=== PATIENT | female | born 1970 | race Caucasian/White ===

== ENCOUNTER 2016-07-14 19:36 | Emergency (ER) | payer OTHER ==
[2016-07-14 20:31] VITALS: BP 126/82
[2016-07-14] MEDS ORDERED: Cyclobenzaprine TAB* 10 MG PO ONE (21:15)
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
== END 2016-07-14 21:27 | disposition home or self-care (01) ==
LOC: UCCORT 19:36
DX: M62.838 Other muscle spasm (principal); R73.03 Prediabetes; E03.9 Hypothyroidism, unspecified; I10 Essential (primary) hypertension; J45.909 Unspecified asthma, uncomplicated; F41.8 Other specified anxiety disorders; F17.210 Nicotine dependence, cigarettes, uncomplicated
CPT/HCPCS: 99212; A9270-GY; G0463

== ENCOUNTER 2017-02-19 11:17 | Emergency (ER) | payer OTHER ==
[2017-02-19 11:39] VITALS: BP 125/92
--- NOTE | 2017-02-19 13:30 | UC ---
Back Pain HPI - HPI Summary HPI Summary: Acute exacerbation of chronic low back pain - History of Current Complaint Chief Complaint: UCBackPain Stated Complaint: lower back pain Time Seen by Provider: 02/19/17 13:24 Hx Obtained From: Patient Hx Last Menstrual Period: 02/15/17 ?: No Onset/Duration: Sudden Onset, Lasting Days - 1 Timing: Constant Severity Initially: Moderate Severity Currently: Moderate Back Pain: Is Discrete @ - lower back both sides Character: Throbbing, Spasmodic, Stiffness Aggravating Factor(s): Movement Alleviating Factor(s): Nothing Associated Signs And Symptoms: Positive: Negative Related History: Previous Back Injury - Allergies/Home Medications Allergies/Adverse Reactions: Allergies Allergy/AdvReac Type Severity Reaction Status Date / Time Gabapentin Allergy Mild Rash Verified 02/19/17 11:32 Penicillins [PCN] Allergy Mild Hives Verified 02/19/17 11:32 [place] Allergy Hives Verified 02/19/17 11:32 Erythromycin AdvReac Mild GI Upset Verified 02/19/17 11:32 Ibuprofen AdvReac Mild GI Upset Verified 02/19/17 11:32 Propoxyphene AdvReac Mild GI Upset Verified 02/19/17 11:32 [From Darvocet-N] Tramadol AdvReac Nausea And Verified 02/19/17 11:32 Vomiting Home Medications: Home Medications QUEtiapine TAB* [Seroquel TAB*] 25 mg PO BID 02/19/17 [History Confirmed ] QUEtiapine TAB* [Seroquel TAB*] 125 mg PO BEDTIME 02/19/17 [History Confirmed ] PMH/Surg Hx/FS Hx/Imm Hx Previously Healthy: No - Chronic pain Endocrine History: Hypothyroidism GI/ History: Gastroesophageal Reflux Other History Of: Negative For: Anticoagulant Therapy - Surgical History Surgical History: Yes Surgery Procedure, Year, and Place: x1. appendectomy. tonsillectomy , pt had a lump removed from rt wrist and carpal tummel repain july 25 2015. RIGHT OOPHRECTOMY - Family History Known Family History: Positive: None - Social History Occupation: Disabled Lives: With Family Alcohol Use: None Substance Use Type: None Smoking Status (MU): Heavy Every Day Tobacco Smoker Type: Cigarettes Amount Used/How Often: 1 ppd X 20 YEARS Length of Time of Smoking/Using Tobacco: ~ 20 years Have You Smoked in the Last Year: Yes Household Exposure Type: Cigarettes Cessation Counseling: Counseled 3+Min - 10 Min - Immunization History Most Recent Influenza Vaccination: December 2013 Review of Systems Constitutional: Negative Skin: Negative Eyes: Negative ENT: Negative Respiratory: Negative Cardiovascular: Negative Gastrointestinal: Negative Genitourinary: Negative Motor: Negative Neurovascular: Negative Musculoskeletal: Negative, Myalgia - Bilateral low back pain Neurological: Negative Psychological: Negative Is Patient Immunocompromised?: No All Other Systems Reviewed And Are Negative: Yes Physical Exam Triage Information Reviewed: Yes Appearance: Well-Nourished, Ill-Appearing - appears older than stated age, Pain Distress - mild Vital Signs: Initial Vital Signs Temp 97.5 F 02/19/17 11:35 Pulse 81 02/19/17 11:35 Resp 18 02/19/17 11:35 BP 125/92 02/19/17 11:35 Vital Signs Reviewed: Yes Eye Exam: Normal Eyes: Positive: Conjunctiva Clear ENT Exam: Normal ENT: Positive: Normal ENT inspection, Hearing grossly normal, Pharynx normal. Negative: Nasal congestion, Nasal drainage, TM bulging, Tonsillar swelling, Tonsillar exudate, Hoarse voice, Dental tenderness, Sinus tenderness Dental Exam: Normal Neck exam: Normal Neck: Positive: Supple, Nontender Respiratory Exam: Normal Respiratory: Positive: Chest non-tender, No respiratory distress, No accessory muscle use Cardiovascular Exam: Normal Cardiovascular: Positive: RRR, Pulses Normal, Brisk Capillary Refill Musculoskeletal Exam: Normal Musculoskeletal: Positive: Strength Intact, No Edema, ROM Limited @ - limited movement in back Neurological Exam: Normal Neurological: Positive: Alert, Muscle Tone Normal Psychological Exam: Normal Skin Exam: Normal Back Pain Course/Dx - Course Course Of Treatment: pain contraol, muscle relaxer, warm compress, follow with pcp - Differential Dx/Diagnosis Provider Diagnoses: Acute exacerbation of chronic low back pain Discharge - Discharge Plan Condition: Stable Disposition: HOME Prescriptions: Hydrocodone-Acetaminophen [Hydrocodone/Acetaminophen 5-325 mg] 1 tab PO Q6H PRN #12 tab MDD 4 PRN Reason: Pain tiZANidine TAB* [Zanaflex TAB*] 2 mg PO TID PRN #15 tab PRN Reason: muscle spasm Patient Education Materials: Chronic Back Pain (ED), Lower Back Exercises (ED) , Core Strengthening Exercises (ED) Referrals: [facility] [Outside] - 5 Days
== END 2017-02-19 13:52 | disposition home or self-care (01) ==
LOC: UCCORT 11:17
DX: M54.5 Low back pain (principal); E03.9 Hypothyroidism, unspecified; K21.9 Gastro-esophageal reflux disease without esophagitis; Z90.89 Acquired absence of other organs; Z88.6 Allergy status to analgesic agent; Z88.1 Allergy status to other antibiotic agents; Z88.5 Allergy status to narcotic agent; Z88.0 Allergy status to penicillin; Z71.6 Tobacco abuse counseling; F17.210 Nicotine dependence, cigarettes, uncomplicated
CPT/HCPCS: 99212; G0463

== ENCOUNTER 2017-06-24 16:00 | Emergency (ER) | payer OTHER ==
[2017-06-24 17:00] VITALS: BP 137/90
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
[2017-06-24] MEDS ORDERED: Ketorolac INJ* 60 MG/2 ML VIAL IM ONE (17:39)
== END 2017-06-24 18:07 | disposition home or self-care (01) ==
LOC: UCCORT 16:00
DX: V09.9XXA Pedestrian injured in unspecified transport accident, initial encounter (principal); Y93.9 Activity, unspecified; Y92.9 Unspecified place or not applicable; Z88.1 Allergy status to other antibiotic agents; Z88.8 Allergy status to other drugs, medicaments and biological substances; F17.210 Nicotine dependence, cigarettes, uncomplicated; M54.9 Dorsalgia, unspecified
CPT/HCPCS: 96372; 99212; G0463; J1885

== ENCOUNTER 2018-01-14 12:37 | Emergency (ER) | payer OTHER ==
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
[2018-01-14 13:51] VITALS: BP 161/102
--- NOTE | 2018-01-14 14:34 | RAD ---
Indication: Chronic low back pain. Comparison: August 12, 2017 MRI. Technique: AP, lateral, and oblique views lumbar sacral spine. Report: Unchanged slight RIGHT convex curve of the lumbar spine and rightward rotation of the vertebral bodies. Negative for fracture or spondylolysis. Negative for significant spondylolisthesis at any level. Transitional segment at the lumbar sacral junction designated L6 for the purpose of this report. Exact counting requires imaging of the entire neural axis. Advanced L5 -- L6 disc space narrowing with associated vertebral and plate osteophytosis and endplate sclerosis. Mild disc space narrowing at the L3-L4 level without change. Advanced facet joint osteoarthritis at L5 -- S6 and L6 -- S1. Unremarkable paraspinal soft tissue contours. IMPRESSION: #. No significant change in magnitude of degenerative spondylosis and facet joint osteoarthritis compared with the August 2017 MRI.
== END 2018-01-14 14:57 | disposition home or self-care (01) ==
LOC: UCCORT 12:37
DX: M54.5 Low back pain (principal); X50.0XXA Overexertion from strenuous movement or load, initial encounter; Y93.89 Activity, other specified; Y92.9 Unspecified place or not applicable; Z88.0 Allergy status to penicillin; Z88.1 Allergy status to other antibiotic agents; Z88.6 Allergy status to analgesic agent; Z88.8 Allergy status to other drugs, medicaments and biological substances; E03.9 Hypothyroidism, unspecified; F17.210 Nicotine dependence, cigarettes, uncomplicated
CPT/HCPCS: 72110; 99212; G0463

== ENCOUNTER 2018-01-25 19:45 | Emergency (ER) | payer OTHER ==
[2018-01-25 20:00] VITALS: BP 137/86
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
--- NOTE | 2018-01-26 08:44 | RAD ---
INDICATION: Posterior RIGHT elbow pain. Previous surgery. Fall 3 weeks ago. Numbness to RIGHT forearm. COMPARISON: No relevant prior exams available on the [facility] PACS for comparison. TECHNIQUE: AP, lateral, and oblique views RIGHT elbow. REPORT: Medial and lateral cortical plates and multiple fixation screws extend from the distal diaphysis through the epicondyles of the humerus. Stigmata of loosening of the internal fixation hardware proximal to the persistent fracture plane at the distal diaphysis distal metaphysis junction. No acute fracture evident. Negative for elbow joint effusion or articular malalignment. Mild nonfocal soft tissue swelling. IMPRESSION: #. Evidence for nonunion and internal fixation hardware loosening at the fracture at the distal diaphysis distal metaphysis junction of the humerus. R0
== END 2018-01-25 21:27 | disposition short-term general hospital (02) ==
LOC: UCCORT 19:45
DX: S42.491A Other displaced fracture of lower end of right humerus, initial encounter for closed fracture (principal); W19.XXXA Unspecified fall, initial encounter; Y92.9 Unspecified place or not applicable; M62.81 Muscle weakness (generalized); Z88.6 Allergy status to analgesic agent; Z88.1 Allergy status to other antibiotic agents; Z88.5 Allergy status to narcotic agent; Z88.0 Allergy status to penicillin; Z91.018 Allergy to other foods; F17.210 Nicotine dependence, cigarettes, uncomplicated
CPT/HCPCS: 99213; G0463

== ENCOUNTER 2018-10-15 17:27 | Emergency (ER) | payer OTHER ==
[2018-10-15 18:03] VITALS: BP 137/76
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
== END 2018-10-15 18:34 | disposition home or self-care (01) ==
LOC: UCCORT 17:27
DX: E05.90 Thyrotoxicosis, unspecified without thyrotoxic crisis or storm (principal); Z76.0 Encounter for issue of repeat prescription; M54.5 Low back pain; F17.210 Nicotine dependence, cigarettes, uncomplicated
CPT/HCPCS: 99212; G0463

== ENCOUNTER 2018-10-29 20:02 | Emergency (ER) | payer OTHER ==
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
[2018-10-29 20:41] VITALS: BP 128/78
== END 2018-10-29 20:45 | disposition short-term general hospital (02) ==
LOC: UCCORT 20:02
DX: M25.521 Pain in right elbow (principal); R20.0 Anesthesia of skin; R20.2 Paresthesia of skin; F17.210 Nicotine dependence, cigarettes, uncomplicated
CPT/HCPCS: 99213; G0463

== ENCOUNTER 2018-12-06 10:24 | Emergency (ER) | payer OTHER ==
[2018-12-06 11:01] VITALS: BP 134/82
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
== END 2018-12-06 11:26 | disposition home or self-care (01) ==
LOC: UCCORT 10:24
DX: E03.9 Hypothyroidism, unspecified (principal); Z76.0 Encounter for issue of repeat prescription; F17.210 Nicotine dependence, cigarettes, uncomplicated
CPT/HCPCS: 99212; G0463

== ENCOUNTER 2019-07-09 17:48 | Emergency (ER) | payer OTHER ==
[2019-07-09 17:59] VITALS: BP 141/99
[2019-07-09] MEDS ORDERED: Sulfamethox/Trimethoprim DS 800/160* TAB PO ONE (18:07)
[2019-07-09] MEDS ORDERED: Mupirocin 2% OINT* TUBE TOPICAL ONE (18:08)
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
[2019-07-09] MEDS: HYDROcodone/ACETAMIN 5-325 MG* 1 TAB PO ONE (18:20)
== END 2019-07-09 18:34 | disposition home or self-care (01) ==
LOC: UCCORT 17:48
DX: T23.6 Corrosion of second degree of wrist and hand (principal); T23.661A Corrosion of second degree back of right hand, initial encounter; Y93.E9 Activity, other interior property and clothing maintenance; Y92.9 Unspecified place or not applicable; E03.9 Hypothyroidism, unspecified; J45.909 Unspecified asthma, uncomplicated; F20.9 Schizophrenia, unspecified; Z79.890 Hormone replacement therapy; Z79.899 Other long term (current) drug therapy; Z88.6 Allergy status to analgesic agent; Z88.1 Allergy status to other antibiotic agents; Z88.5 Allergy status to narcotic agent; Z88.0 Allergy status to penicillin; Z91.018 Allergy to other foods; F17.210 Nicotine dependence, cigarettes, uncomplicated
CPT/HCPCS: 16020; 99213; A9270-GY; G0463

== ENCOUNTER 2019-07-17 17:03 | Emergency (ER) | payer OTHER ==
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
[2019-07-17] MEDS ORDERED: Silver Sulfadiazine 1%* 20 GM TOPICAL ONE (18:05)
[2019-07-17] MEDS ORDERED: HYDROcodone/ACETAMIN 5-325 MG* 1 TAB PO ONE (18:20)
[2019-07-17 18:28] VITALS: BP 151/107
== END 2019-07-17 18:53 | disposition home or self-care (01) ==
LOC: UCCORT 17:03
DX: T65.891D Toxic effect of other specified substances, accidental (unintentional), subsequent encounter (principal); T23.5 Corrosion of first degree of wrist and hand; T32.0 Corrosions involving less than 10% of body surface; E03.9 Hypothyroidism, unspecified; J45.909 Unspecified asthma, uncomplicated; F20.9 Schizophrenia, unspecified; Z79.890 Hormone replacement therapy; Z79.899 Other long term (current) drug therapy; Z88.6 Allergy status to analgesic agent; Z88.1 Allergy status to other antibiotic agents; Z88.5 Allergy status to narcotic agent; Z88.0 Allergy status to penicillin; Z91.018 Allergy to other foods; F17.210 Nicotine dependence, cigarettes, uncomplicated
CPT/HCPCS: 99213; A9270-GY; G0463

== ENCOUNTER 2019-07-21 11:29 | Emergency (ER) | payer OTHER ==
[2019-07-21 11:52] VITALS: BP 136/82
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
== END 2019-07-21 12:23 | disposition home or self-care (01) ==
LOC: UCCORT 11:29
DX: T65.891D Toxic effect of other specified substances, accidental (unintentional), subsequent encounter (principal); T23.4 Corrosion of unspecified degree of wrist and hand; E03.9 Hypothyroidism, unspecified; J45.909 Unspecified asthma, uncomplicated; F20.9 Schizophrenia, unspecified; Z79.890 Hormone replacement therapy; Z79.899 Other long term (current) drug therapy; Z88.6 Allergy status to analgesic agent; Z88.1 Allergy status to other antibiotic agents; Z88.5 Allergy status to narcotic agent; Z88.0 Allergy status to penicillin; Z91.018 Allergy to other foods; F17.210 Nicotine dependence, cigarettes, uncomplicated
CPT/HCPCS: 99211; G0463